=== PATIENT | male | born 1965 | race Caucasian/White ===

== ENCOUNTER 2018-11-22 20:54 | Emergency (ER) | payer SELFPAY ==
[2018-11-22 21:01] VITALS: BP 148/77; PULSE 65; RESP 18; TEMP 37.5; BMI 23.1
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
--- NOTE | 2018-11-22 21:13 | DI.RAD.S_ITS ---
PROCEDURE: XR SCAPULA LT INDICATIONS: Scapula dislocation TECHNIQUE: 2 views of the scapula were acquired. COMPARISON: None. FINDINGS: Bones: No scapular fracture noted. Winged scapula. No suspicious bony lesions. Visualized ribs appear intact. Soft tissues: Overlying soft tissues appear normal. IMPRESSION: Winged scapula deformity. Dictated by: Ancelmo Mcneal M.D. on 11/22/2018 at 21:25 Approved by: Ancelmo Mcneal M.D. on 11/22/2018 at 21:27
--- NOTE | 2018-11-22 21:49 | PC.NURSE ---
Pt stated he's tired of waiting and wants to go home. Pt encouraged to wait a short while longer for doctor to speak with home.
== END 2018-11-22 22:10 | disposition home or self-care (01) ==
PROVIDERS: Emergency Provider Emergency Medicine
DX: M95.8 Other specified acquired deformities of musculoskeletal system (principal)
CPT/HCPCS: 73010; 99282; 99283

== ENCOUNTER 2018-11-23 02:05 | Emergency (ER) | payer OTHER, SELFPAY ==
[2018-11-23 02:20] VITALS: BP 124/50; PULSE 95; RESP 16; TEMP 36.9; O2SAT 100; BMI 23.1
--- NOTE | 2018-11-23 02:57 | PC.NURSE ---
Pt became agitated and verbally abusive when I asked him to provide a urine sample. What is this shit? You tell that doctor I am not playing this game, he can either set my fucking shoulder or let me go. What does my fucking urine have to do with my shoulder? Pt continued in this profane manner until I informed him that there is no need to speak to me like that and I left the room. Dr Rubi notified. Pt was putting his hooded sweatshirt on with both arms. Pt informed that he is free to go. Pt uttered continuous abusive profanity as he left the department.
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
== END 2018-11-23 03:02 | disposition left against medical advice (07) ==
PROVIDERS: Emergency Provider Emergency Medicine
DX: S43.315A Dislocation of left scapula, initial encounter (principal); Z53.21 Procedure and treatment not carried out due to patient leaving prior to being seen by health care provider
CPT/HCPCS: 99282